=== PATIENT | female | born 1955 | race Caucasian/White ===

== ENCOUNTER → 2016-08-06 | Outpatient (CLI) | payer BC ==
--- NOTE | 2016-08-06 19:36 | XA ---
Exam Date: 08/06/16 Patient's Age: 61 HEIGHT: 67.0 in. WEIGHT: 168.0 lbs. INDICATIONS: Currently menopausal, hysterectomy FRACTURES: TREATMENTS: Cenestin, Januvia, metformin ASSESSMENT: The BMD measured at Femur Neck Mean is 0.905 g/cm2 with a T-score of -1.0. Bone density is up to 10% below young normal. This patient is considered normal according to World Health Organization (WHO)criteria. Fracture risk is low. The BMD measured at Femur Troch Mean is 0.710 g/cm2 with a T-score of -1.2 is considered moderately low. Fracture risk is moderate. Treatment is advised if there are other risk factors. RESULTS: Site Region Age Classification T-Score BMD AP Spine L1-L4 60.1 Normal -0.2 1.174 g/cm2 Dual Femur Neck Mean 60.1 Normal -1.0 0.710 g/cm2 Dual Femur Troch Mean 60.1 N/A -1.2 0.710 g/cm2 Dual Femur Total Mean 60.1 Normal -0.5 0.939 g/cm2 World Health Organization - Criteria for post-menopausal, women: Normal: T-Score at or above -1 SD Osteopenia: T-Score between -1 and -2.5 SD Osteoporosis: T-Score at or below -2.5 SD RECOMMENDATION: Pharmacologic treatment recommendations & Initiate pharmacologic treatment: - In those with hip or vertebral (clinical or asymptomatic) fractures - In those with T -scores <-2.5 at the femoral neck, total hip, or lumbar spine by DXA - In postmenopausal women and men age 50 and older with low bone mass (T-score between -1.0 and -2.5, osteopenia) at the femoral neck, total hip, or lumbar spine by DXA and a 10-year hip fracture probability >3 % or a 10-year major osteoporosis-related fracture probability >20% based on the [place]-adapted WHO absolute fracture risk model (Fracture Risk Algorithm (FRAX); www. NOF.org and www.shef.ac.uk/FRAX) FOLLOW UP: People with diagnosed cases of osteoporosis or at high risk for fracture should have regular bone mineral density tests. For patients eligible for Medicare, routine testing is allowed once every 2 years. The testing frequency can be increased to 1 year for patients who have rapidly progressing disease, those who are reviewing or discontinuing medial therapy to restore bone mass, or have additional risk factors. People with diagnosed cases of osteoporosis or osteopenia should be regularly tested for bone mineral density. For patient eligible for Medicare, routine testing is allowed once every 2 years. The testing frequency can be increased to 1 year for patients who have rapidly progressing disease, or for those who are receiving medial therapy to restore bone mass. [facility] -- SAMM Rodriguez [phone] - FAX: [phone] ELISABET
--- NOTE | 2016-08-11 17:37 | MY ---
EXAMINATION: Bilateral digital mammography utilizing CAD. HISTORY: Screening exam. Comparison is made to previous studies dated 06/17/2015, 05/22/2014 . FINDINGS: Bilateral scattered fibroglandular densities. Postsurgical calcifications are noted wit hin the inner right breast. No suspicious calcifications, masses or architectural distortions. No pathologic appearing lymph nodes, no abnormal skin thickening or nipple inversion. CAD highlighte d regions appear normal at this time. IMPRESSION: BI-RADS category II - Benign finding. Continued screening according to ACR-ACS guidelin es suggested. THE FALSE-NEGATIVE RATE OF MAMMOGRAM IS APPROXIMATELY 10%. MANAGEMENT OF A PALPABLE ABNORMALITY MUST BE BASED UPON CLINICAL GROUNDS. SENSITIVITY FOR DETECTION OF ABNORMALITIES IN DENSE BREASTS IS LOW. NOTE: A letter will be sent to the patient regarding findings. [facility] -- SAMM Rodriguez [phone] - FAX [phone]
== END ==
LOC: MW.MAM 08:50
PROVIDERS: ATTEND Obstetrics & Gynecology
DX: Z12.31 Encounter for screening mammogram for malignant neoplasm of breast (principal); N95.1 Menopausal and female climacteric states
CPT/HCPCS: 77080; G0202

== ENCOUNTER → 2016-10-12 | Outpatient (CLI) | payer BC ==
[2016-10-12 09:43] LABS: CHLORIDE,CL 107 mmol/L (98-110); SODIUM,NA 140 mmol/L (136-146)
== END ==
LOC: MW.CHFP 08:53
PROVIDERS: ATTEND Emergency Medicine
DX: E11.65 Type 2 diabetes mellitus with hyperglycemia (principal)
CPT/HCPCS: 36415; 80048; 83036

== ENCOUNTER 2021-01-16 10:07 | Day surgery (SDC) | payer BC ==
[~2021-01-16 10:07] MED LIST: Lactated Ringers 1,000 ML IV SCH; Sodium Chloride 0.9% 10 ML SDV IV PRN; Sodium Chloride 0.9% 10 ML Syringe FLUSH PRN; Sodium Chloride 0.9% 2.5 ML Syringe FLUSH PRN; propofoL 0 ML ONE
--- NOTE | 2021-01-16 11:01 | PCM.PREANE ---
Preanesthetic Assessment - Procedure Proposed Procedure: EGD/Colonoscopy - Anesthesia/Transfusion/Family Hx Anesthesia History: Prior Anesthesia Without Reaction Other Type of Anesthesia Reaction Comment: REports has motion sickness, hx: vomiting post anesthesia Family History of Anesthesia Reaction: No Transfusion History: No Prior Transfusion(s) - Review of Systems General: No Symptoms Pulmonary: No Symptoms Cardiovascular: No Symptoms (HTN, HLD) Gastrointestinal: No Symptoms Neurological: No Symptoms Other: Reports: None (Factor 5 Leiden), Diabetes (on Metformin and Ozempic) - Physical Assessment NPO Status Date: 01/14/21 NPO Status Time: 19:30 Height: 5 ft 7 in Weight: 78.925 kg ASA Class: 2 Mental Status: Alert & Oriented x3 Airway Class: Mallampati = 3 Dentition: Reports: Normal Dentition Thyro-Mental Finger Breadths: 3 Mouth Opening Finger Breadths: 3 ROM/Head Extension: Full Lungs: Clear to Auscultation, Normal Respiratory Effort Cardiovascular: Regular Rate, Regular Rhythm - Allergies Allergies/Adverse Reactions: Allergies Allergy/AdvReac Type Severity Reaction Status Date / Time iodine Allergy Hives Verified 01/13/21 08:09 - Acknowledgements Anesthesia Type Planned: General Anesthesia Pt an Appropriate Candidate for the Planned Anesthesia: Yes Alternatives and Risks of Anesthesia Discussed w Pt/Guardian: Yes Pt/Guardian Understands and Agrees with Anesthesia Plan: Yes PreAnesthesia Questionnaire HEENT History: Reports: Other (See Below) Other HEENT History: wears glasses Cardiovascular History: Reports: None Respiratory History: Reports: None Gastrointestinal History: Reports: Diverticulosis, GERD, Hemorrhoids Other Gastrointestinal History: Heartburn/GERD hx: esophagitis Genitourinary History: Reports: None FISHER EEL History: Reports: Musculoskeletal History: Reports: None Neurological History: Reports: None Psychiatric History: Reports: Anxiety, Depression Endocrine/Metabolic History: Reports: Diabetes, Type II Hematologic History: Reports: None Immunologic History: Reports: Other (See Below) Other Immunologic History: hx MRSA in the past, states has been cleared Oncologic (Cancer) History: Reports: None Dermatologic History: Reports: Other (See Below) - Past Surgical History Head Surgeries/Procedures: Reports: None HEENT Surgical History: Reports: None Cardiovascular Surgical History: Reports: None Respiratory Surgical History: Reports: None GI Surgical History: Reports: Appendectomy, Colonoscopy, EGD Female Surgical History: Reports: Breast Biopsy, Hysterectomy, Salpingo- Oophorectomy Other Female Surgeries/Procedures: hx exploratory laparotomy, breast lumpectomy, hysterectomy Endocrine Surgical History: Reports: None Neurological Surgical History: Reports: None Musculoskeletal Surgical History: Reports: None Oncologic Surgical History: Reports: Other (See Below) Other Oncologic Surgeries/Procedures: Lumpectomy 'Benign', hx excision of skin cancer to leg Dermatological Surgical History: Reports: Skin Biopsy - SUBSTANCE USE Tobacco Use Status *Q: Never Tobacco User Recreational Drug Use History: No - HOME MEDS Home Medications: Home Meds Cholecalciferol (Vitamin D3) [Vitamin D3] 1,000 units PO DAILY 01/24/15 [History] Lisinopril 2.5 mg PO DAILY 01/24/15 [History] Sertraline HCl 50 mg PO DAILY 01/24/15 [History] metFORMIN [Glucophage XR] 2 tab PO BIDMEALS 01/24/15 [History] Aspirin [Sayner Aspirin] 81 mg PO DAILY 01/10/21 [History] Calcium Carbonate/Vitamin D3 [Calcium 600-Vit D3 200 Tablet] 1 tab PO DAILY 01/10/21 [History] Cyanocobalamin (Vitamin B12) [Vitamin B12] 50 mcg PO DAILY 01/10/21 [History] EPINEPHrine [Epipen 2-Fady] 1 injection SUBCUT ASDIRECTED PRN 01/10/21 [History] Pioglitazone HCl 15 mg PO DAILY 01/10/21 [History] Semaglutide [Ozempic] 0.5 mg SUBCUT WEEKLY 01/10/21 [History] atorvaSTATin Calcium [Atorvastatin Calcium] 10 mg PO DAILY 01/10/21 [History] polyethylene glycoL 3350 [MiraLAX] 1 dose PO ASDIRECTED PRN 01/10/21 [History] Calcium Carbonate [Tums] 1 tab.chew CHEW ASDIRECTED PRN 01/13/21 [History] - CURRENT (IN HOUSE) MEDS Current Meds: Current Medications Lactated Ringer's (Ringers, Lactated) 1,000 mls @ 125 mls/hr IV ASDIRECTED STEPHANIE Sodium Chloride (Sodium Chloride 0.9% 10 Ml Syringe) 10 ml FLUSH ASDIRECTED PRN PRN Reason: Keep Vein Open Sodium Chloride (Sodium Chloride 0.9% 2.5 Ml Syringe) 2.5 ml FLUSH ASDIRECTED PRN PRN Reason: Keep Vein Open Sodium Chloride (Sodium Chloride 0.9% 10 Ml Syringe) 10 ml FLUSH ASDIRECTED PRN PRN Reason: Keep Vein Open Sodium Chloride (Sodium Chloride 0.9% 2.5 Ml Syringe) 2.5 ml FLUSH ASDIRECTED PRN PRN Reason: Keep Vein Open Sodium Chloride (Sodium Chloride 0.9% 10 Ml Sdv) 10 ml IV ASDIRECTED PRN PRN Reason: IV Use Discontinued Medications Propofol (Diprivan 50 Ml) Confirm Administered Dose 50 mls @ as directed .ROUTE .[facility] ONE Stop: 01/16/21 07:30
[2021-01-16] MEDS ORDERED: Propofol 200 MG/20 ML SDV ONE (13:04)
[2021-01-16] MEDS ORDERED: Lidocaine 2% 5 ML SDV ONE (13:04)
--- NOTE | 2021-01-16 13:43 | PCM.OPNOTE ---
- General Post-Op/Procedure Note Date of Surgery/Procedure: 01/16/21 Operative Procedure(s): Diagnostic egd and colonoscopy Findings: hiatal hernia, normal colon, grade iv hemorrhoids Pre Op Diagnosis: GERD, hemorrhoids Post-Op Diagnosis: Hiatal hernia, gastric diverticuli, grade IV hemorrhoid normal colon [place]est[place] [facility] [place]geon: Valeria Cifuentes Condition: Good
--- NOTE | 2021-01-16 13:49 | PCM.POSTAN ---
POST ANESTHESIA ASSESSMENT - MENTAL STATUS Mental Status: Somnolent - VITAL SIGNS Vital Signs: Last Vital Signs Temp 97.5 F 01/16/21 13:37 Pulse 82 01/16/21 13:43 Resp 16 01/16/21 13:43 BP 90/59 L 01/16/21 13:43 Pulse Ox 96 01/16/21 13:43 - RESPIRATORY Respiratory Status: Respiratory Rate WNL, Airway Patent, O2 Saturation Stable - CARDIOVASCULAR CV Status: Pulse Rate WNL, Blood Pressure Stable - GASTROINTESTINAL GI Status: No Symptoms - PAIN Free Text/Narrative:: Resting comfortably - POST OP HYDRATION Hydration Status: Adequate & Stable
--- NOTE | 2021-01-16 13:57 | PCM48HPAN ---
Post Anesthesia Note - EVALUATION WITHIN 48HRS OF ANESTHETIC Vital Signs in Normal Range: Yes Patient Participated in Evaluation: Yes Respiratory Function Stable: Yes Airway Patent: Yes Cardiovascular Function Stable: Yes Hydration Status Stable: Yes Pain Control Satisfactory: Yes Nausea and Vomiting Control Satisfactory: Yes Mental Status Recovered: Yes Vital Signs: Last Vital Signs Temp 97.5 F 01/16/21 13:37 Pulse 88 01/16/21 13:52 Resp 21 H 01/16/21 13:52 BP 99/71 01/16/21 13:52 Pulse Ox 94 L 01/16/21 13:52 - COMMENTS/OBSERVATIONS Free Text/Narrative:: Pt doing well post-op. VSS. No apparent anesthetic complications. Dr. Parviz Graff
[2021-01-16 14:11] VITALS: BP 112/67; PULSE 82
--- NOTE | 2021-01-17 18:28 | OR ---
SURGEON: VALERIA CIFUENTES MD DATE OF PROCEDURE: 01/16/2021 PREOPERATIVE DIAGNOSES: Heartburn, grade 4 hemorrhoids. POSTOPERATIVE DIAGNOSES: 1. Hiatal hernia. 2. Gastric diverticulum. 3. Grade 4 hemorrhoids. PROCEDURE PERFORMED: Diagnostic esophagogastroduodenoscopy and colonoscopy. PRIMARY SURGEON: Valeira Cifuentes MD ANESTHESIA: MAC. INSTRUMENT USED: Olympus endoscope and colonoscope. EXTENT OF EXAM: To the second portion of duodenum, to the cecum. PREPARATION: Good. LIMITATIONS: None. INDICATIONS FOR EXAMINATION: The patient is a 65-year-old female who was referred to my office for external hemorrhoids. She has had circumferential hemorrhoids since the of her children. She has chronic constipation for which she takes [id number] MiraLAX for. She has had colonoscopies in the past and has a history of colitis as well as diverticulosis. She also has a history of heartburn and esophagitis. She is due for repeat colonoscopy. The patient and I discussed the procedure, expected perioperative course, and the risks. She verbalized understanding and wishes to proceed. PROCEDURE IN DETAIL: The patient was brought to the endoscopy suite and placed in the left lateral decubitus position. A time-out was completed verifying the patient's name, age, date of , allergies, and procedure to be performed. Monitored anesthesia care was induced and continuous oxygen was provided via face mask throughout the procedure. A bite block was placed in the patient's mouth. After adequate sedation was achieved, a well-lubricated endoscope was placed in the patient's mouth and advanced under direct visualization to the second portion of duodenum. This appeared normal, and a photograph was taken. The scope was then fully withdrawn while examining the color, texture, anatomy, and integrity of mucosa of the upper GI tract. The duodenum was normal. The scope was brought into the stomach, and a photograph taken of the pylorus and GE junction. The patient was noted to have a small hiatal hernia. The gastric mucosa showed no evidence of gross inflammation or ulceration. The patient had a small diverticula within the proximal half of her stomach, and a photograph of this was taken. The scope was then brought into the distal esophagus, and a photograph taken. This showed the small hiatal hernia sac. The Z-line appeared normal. There was no evidence of distal esophagitis or inflammation. A biopsy was taken 1 cm above the Z-line and sent to Pathology. The remainder of the esophagus was free of pathology. The scope was removed, and this portion of procedure terminated. A digital rectal exam was performed. Again, the patient had large circumferential grade 4 hemorrhoids. A well-lubricated colonoscope was inserted per rectum and advanced under direct visualization to the level of the cecum. The cecum was identified by both visual and anatomic landmarks. A photograph was taken of the cecal cap as well as with the scope retroflexed within the cecum. The scope was then fully withdrawn while examining the color, texture, anatomy, and integrity of mucosa from the cecum to the anal canal. The findings were consistent with normal colonic mucosa. I saw no evidence of colon polyps. The scope was brought into the rectum and retroflexed to allow visualization of the anal canal opening, and a photograph was taken. Again, no masses or abnormalities were noted. The scope was straightened out and fully withdrawn. The cecum to anus time was 7 minutes. The patient tolerated the procedure well and was transferred to the PACU in stable condition. ENDOSCOPIC DIAGNOSES: 1. Hiatal hernia. 2. Gastric diverticulum. 3. Grade 4 hemorrhoids. RECOMMENDATIONS: Follow up in clinic in 2 weeks. SALVADOR VALDEZ /[id number]
== END 2021-01-16 14:15 | disposition home or self-care (01) ==
LOC: MW.SDS 10:07
PROVIDERS: ATTEND Surgery
DX: K64.3 Fourth degree hemorrhoids (principal); K31.4 Gastric diverticulum; K59.09 Other constipation; K44.9 Diaphragmatic hernia without obstruction or gangrene; K64.4 Residual hemorrhoidal skin tags; E11.9 Type 2 diabetes mellitus without complications; E78.5 Hyperlipidemia, unspecified; K21.9 Gastro-esophageal reflux disease without esophagitis; I10 Essential (primary) hypertension; Z88.8 Allergy status to other drugs, medicaments and biological substances; Z91.041 Radiographic dye allergy status; Z79.82 Long term (current) use of aspirin; Z79.899 Other long term (current) drug therapy; Z79.84 Long term (current) use of oral hypoglycemic drugs; Z90.49 Acquired absence of other specified parts of digestive tract; Z98.890 Other specified postprocedural states
CPT/HCPCS: 43239; 45378; 88305; 88342; J2704; J7120

== ENCOUNTER 2024-02-02 19:02 | Emergency (ER) | payer MEDICARE, BC ==
[2024-02-02 20:18] VITALS: BP 136/76; PULSE 78
== END 2024-02-02 20:17 | disposition home or self-care (01) ==
LOC: MW.ED 19:02
DX: R33.9 Retention of urine, unspecified (principal); E11.9 Type 2 diabetes mellitus without complications; Z79.899 Other long term (current) drug therapy; Z75.8 Other problems related to medical facilities and other health care; Z88.8 Allergy status to other drugs, medicaments and biological substances
CPT/HCPCS: 51702; 99283